=== PATIENT | female | born 1960 | race African-American/Black ===

== ENCOUNTER 2022-08-11 12:53 | Outpatient (CLI) | payer OTHER | END 2022-08-11 12:54 | disposition home or self-care (01) | LOC: CSHMAMMO 12:53 | PROVIDERS: ATTEND Family Medicine | DX: Z12.31 Encounter for screening mammogram for malignant neoplasm of breast (principal); M85.80 Other specified disorders of bone density and structure, unspecified site; Z80.3 Family history of malignant neoplasm of breast | CPT/HCPCS: 77063; 77067; 77080 ==